=== PATIENT | female | born 1995 | race Caucasian/White ===

== ENCOUNTER 2021-10-18 02:54 | Inpatient (IN) ==
[2021-10-18] MEDS ORDERED: *HR* Nalbuphine 10 MG/ML AMPUL IV PRN (03:10)
[2021-10-18] MEDS ORDERED: Metoclopramide 10 MG/2 ML VIAL IVP PRN (03:10)
[2021-10-18] MEDS ORDERED: Azithromycin 500 MG in 0.9 % Sodium Chloride 250 ML IVPB PRN (03:10)
[2021-10-18] MEDS ORDERED: Penicillin G Potassium 5,000,000 UNIT in 0.9 % Sodium Chloride Mini Bag 100 ML IVPB ONE (03:10)
[2021-10-18] MEDS ORDERED: Famotidine 20 MG/2 ML VIAL IVP PRN (03:10)
[2021-10-18] MEDS ORDERED: Lidocaine 1% 20 ML MDV INFILT PRN (03:10)
[2021-10-18] MEDS ORDERED: Ondansetron 4 MG/2 ML VIAL IVP PRN (03:10)
[2021-10-18] MEDS ORDERED: Naloxone 0.4 MG/ML INJ IVP PRN (03:10)
[2021-10-18] MEDS: Ringers Solution, Lactated 1,000 ML IVC SCH ×2 (04:25→16:21)
[2021-10-18] MEDS: miSOPROStoL 25 MCG TABLET PO PRN ×2 (04:25→08:42)
[2021-10-18 04:31] LABS: Basophils % 0.2 %; Eosinophils # 0.1 K/mcL (0.0-0.6); Eosinophils % 0.9 %; Hematocrit 32.1 % (35.3-44.9); Hemoglobin 10.3 g/dL (11.5-15.4); Immature Granulocytes % 0.3 % (0-4); Lymphocytes # 2.4 K/mcL (0.6-4.6); Lymphocytes % 21.6 %; Mean Corpuscular HGB Conc 32.1 g/dL (31.6-35.5); Mean Corpuscular Hemoglobin 25.8 pg (28.0-33.3); Mean Corpuscular Volume 80.5 fL (83.0-100.0); Mean Platelet Volume 10.1 fL (9.4-12.4); Monocytes # 1.1 K/mcL (0.0-1.3); Monocytes % 9.5 %; Neutrophils # 7.6 K/mcL (1.6-8.9); Platelet Count 279 K/mcL (140-400); Red Blood Count 3.99 M/mcL (3.82-4.97); Red Cell Distribution Width 14.9 % (11.5-14.5); Segmented Neutrophils % 67.5 %; White Blood Count 11.2 K/mcL (4.3-11.1)
[2021-10-18 04:39] LABS: Amphetamine Screen,Urine Negative ng/mL (Cutoff=1000); Barbiturate Screen,Urine Negative ng/mL (Cutoff=200); Benzodiazepines Screen,Urine Negative ng/mL (Cutoff=200); Cannabinoid Screen,Urine Negative ng/mL (Cutoff = 50); Cocaine Screen,Urine Negative ng/mL (Cutoff= 300); Opiate Screen,Urine Negative ng/mL (Cutoff=300); Phencyclidine Screen,Urine Negative ng/mL (Cutoff=25)
[2021-10-18 05:05] LABS: Influenza A PCR Negative (Negative); Influenza B PCR Negative (Negative); Resp. Syncytial Virus PCR Negative (Negative)
[2021-10-18 05:06] LABS: SARS-CoV-2 by PCR (In House) Negative (Negative)
[2021-10-18] MEDS ORDERED: EPHEDrine 50 MG/ML VIAL IVP PRN (05:37)
[2021-10-18] MEDS ORDERED: Epidural Premix (fent/bupiv) 110 ML EP SCH (05:45)
[2021-10-18] MEDS: Penicillin G Potassium 2,500,000 UNIT/105 ML MLS IVPB SCH ×4 (08:29→20:10)
[2021-10-18 10:27] LABS: Alanine Aminotransferase 9 Units/L (7-52); Aspartate Amino Transferase 10 Units/L (13-39); BUN/Creatinine Ratio 20 (6-26); Blood Urea Nitrogen 11 mg/dL (6-20); Lactate Dehydrogenase 94 Units/L (140-271); Uric Acid 4.2 mg/dL (2.3-7.6); eGFR For African Americans > 60 (> 60); eGFR For Non-African Americans > 60 (> 60)
[2021-10-18 12:06] LABS: Protein/Creatinine Ratio,Urine 0.25 mg/mg (0.00-0.20)
[2021-10-18] MEDS: Oxytocin 30 UNIT/503 ML BAG IVC SCH (13:24)
[2021-10-19] MEDS: Penicillin G Potassium 2,500,000 UNIT/105 ML MLS IVPB SCH ×6 (00:19→22:13)
[2021-10-19] MEDS: Ringers Solution, Lactated 1,000 ML IVC SCH (00:46)
[2021-10-19] MEDS ORDERED: Epidural Premix (fent/bupiv) 110 ML EP SCH (16:00)
[2021-10-20] MEDS: Ringers Solution, Lactated 1,000 ML IVC SCH (02:11)
[2021-10-20] MEDS: Penicillin G Potassium 2,500,000 UNIT/105 ML MLS IVPB SCH ×2 (02:11→06:14)
[2021-10-20] MEDS: Oxytocin 30 UNIT/503 ML BAG IVC SCH (02:40)
[2021-10-20] MEDS ORDERED: D5% in Lactated Ringers 1,000 ML IVC SCH (06:00)
[2021-10-20] MEDS ORDERED: ceFAZolin 3,000 MG in 0.9 % Sodium Chloride 100 ML IVPB ONE (06:47)
[2021-10-20] MEDS ORDERED: Lidocaine/EPI 1:200k 2% PF 20 ML VIAL ONE (06:48)
[2021-10-20] MEDS ORDERED: *HR* FentaNYL (PF) 100 MCG/2 ML VIAL ONE (06:48)
[2021-10-20] MEDS ORDERED: Sodium Bicarbonate 50 MEQ/50 ML VIAL ONE (06:48)
[2021-10-20] MEDS ORDERED: Ringers Solution, Lactated 1,000 ML ONE (06:53)
[2021-10-20] MEDS ORDERED: *HR* Midazolam HCl 2 MG/2 ML VIAL ONE (06:53)
[2021-10-20] MEDS ORDERED: Ondansetron 4 MG/2 ML VIAL ONE (06:53)
[2021-10-20] MEDS ORDERED: *HR* Oxytocin 10 UNIT/ML VIAL ONE (07:11)
[2021-10-20] MEDS ORDERED: *HR* Morphine Sulfate/PF 10 MG/10 ML AMPUL ONE (07:28)
[2021-10-20] MEDS ORDERED: Ketamine *HR* 500 MG/10 ML MDV ONE (07:28)
[2021-10-20] MEDS ORDERED: Acetaminophen IV 1,000 MG/100 ML BAG IVPB ONE (07:31)
[2021-10-20] MEDS ORDERED: Ketorolac 30 MG/ML VIAL ONE (07:35)
[2021-10-20] MEDS ORDERED: *HR* Labetalol 20 MG/4 ML SYRINGE IVP ONE (07:37)
[2021-10-20] MEDS ORDERED: EPINEPHrine 1 MG/ML VIAL ONE (07:41)
[2021-10-20] MEDS ORDERED: *HR* HYDROmorphone PF 0.5 MG/0.5 ML SYRINGE IVP PRN (08:22)
[2021-10-20] MEDS ORDERED: *HR* Labetalol 20 MG/4 ML SYRINGE IVP PRN (08:22)
[2021-10-20] MEDS ORDERED: Ringers Solution, Lactated 1,000 ML IVC SCH (08:30)
[2021-10-20] MEDS ORDERED: Ondansetron 4 MG/2 ML VIAL IVP PRN (10:41)
[2021-10-20] MEDS ORDERED: Rho Immune Globulin 1,500 UNIT SYRINGE IM ONE (10:41)
[2021-10-20] MEDS ORDERED: Metoclopramide 10 MG/2 ML VIAL IVP PRN (10:41)
[2021-10-20] MEDS ORDERED: *HR* HYDROmorphone (PF) 1 MG/ML SYRINGE IVP PRN (10:41)
[2021-10-20] MEDS: Ibuprofen 600 MG TABLET PO SCH ×2 (11:08→23:02)
[2021-10-20] MEDS: Ketorolac 30 MG/ML VIAL IVP PRN ×2 (12:58→22:40)
[2021-10-20] MEDS: Acetaminophen 325 MG TABLET PO SCH ×2 (13:14→22:39)
[2021-10-20] MEDS: metroNIDAZOLE 500 MG TABLET PO SCH ×3 (15:00→22:39)
[2021-10-20] MEDS: ceFAZolin 2,000 MG in Water for inj. (sterile) 10 ML IVP SCH (16:35)
[2021-10-20] MEDS: Prenatal Vit/FA 1 EACH TABLET PO SCH ×2 (16:35→17:03)
[2021-10-20] MEDS: *HR* Enoxaparin 80 MG/0.8 ML SYRINGE SQ SCH (22:40)
[2021-10-20] MEDS: Simethicone 80 MG TAB.CHEW PO PRN (22:52)
[2021-10-21] MEDS: ceFAZolin 2,000 MG in Water for inj. (sterile) 10 ML IVP SCH ×2 (00:25→08:33)
[2021-10-21 03:39] LABS: Basophils % 0.1 %; Eosinophils # 0.1 K/mcL (0.0-0.6); Eosinophils % 0.4 %; Hematocrit 26.2 % (35.3-44.9); Immature Granulocytes % 0.3 % (0-4); Lymphocytes # 2.6 K/mcL (0.6-4.6); Lymphocytes % 20.6 %; Mean Corpuscular HGB Conc 32.4 g/dL (31.6-35.5); Mean Corpuscular Hemoglobin 25.8 pg (28.0-33.3); Mean Corpuscular Volume 79.6 fL (83.0-100.0); Mean Platelet Volume 10.3 fL (9.4-12.4); Monocytes % 7.7 %; Platelet Count 220 K/mcL (140-400); Red Blood Count 3.29 M/mcL (3.82-4.97); Red Cell Distribution Width 15.2 % (11.5-14.5); Segmented Neutrophils % 70.9 %; White Blood Count 12.6 K/mcL (4.3-11.1)
[2021-10-21 03:40] LABS: Hemoglobin 8.5 g/dL (11.5-15.4)
[2021-10-21] MEDS: Ibuprofen 600 MG TABLET PO SCH ×3 (06:11→12:12)
[2021-10-21] MEDS: Acetaminophen 325 MG TABLET PO SCH ×3 (06:13→12:13)
[2021-10-21] MEDS: *HR* Enoxaparin 80 MG/0.8 ML SYRINGE SQ SCH ×2 (07:26→08:33)
[2021-10-21 07:57] VITALS: O2SAT 97
[2021-10-21] MEDS: metroNIDAZOLE 500 MG TABLET PO SCH (08:34)
[2021-10-21] MEDS: Simethicone 80 MG TAB.CHEW PO PRN (08:56)
[2021-10-21 11:21] VITALS: BP 123/77; PULSE 82; TEMP 97.8
== END 2021-10-21 13:25 | disposition home or self-care (01) | DRG 787 ==
LOC: 1NENULAB 02:54 → 1NENUOBS 10-20 11:18
PROVIDERS: ADMIT Obstetrics & Gynecology; ATTEND Obstetrics & Gynecology